=== PATIENT | male | born 1970 | race Two or more races ===

== ENCOUNTER 2022-04-19 17:56 | Emergency (ER) | payer OTHER ==
[2022-04-19 18:12] VITALS: TEMP 98.7; BMI 53.1
[2022-04-19 20:52] LABS: BASO % 0.7 % (0-2.0); EOS % 3.1 % (0-4.5); HEMATOCRIT 45.6 % (35.4-49); HEMOGLOBIN 15.8 GM/dL (11.7-16.9); MCHC 34.6 g/dl (32.0-35.9); MEAN CELL VOLUME 92.5 fl (80-96); MEAN PLT VOLUME 7.7 fl (7.5-11.1); MONO % 9.2 % (3.8-10.2); PLATELET COUNT 302 10^3/uL (134-434); RBC 4.93 M/mm3 (4.00-5.60); RDW 13.2 % (11.9-15.9); WHITE BLOOD COUNT 9.4 K/mm3 (4.0-10.0)
[2022-04-19 20:58] LABS: INR 1.08 (0.83-1.09); PROTHROMBIN TIME (PATIENT) 12.4 SEC (9.7-13.0)
[2022-04-19 21:01] LABS: ACTIVATED PTT 30.7 SECONDS (25.2-36.5)
[2022-04-19] MEDS ORDERED: LACTATED RINGERS SOLUTION 1000 ML INFUS.BAG IV ONE (21:02)
[2022-04-19 21:09] LABS: ALBUMIN 3.5 g/dl (3.4-5.0); BLOOD UREA NITROGEN 15.9 mg/dL (7-18); CALCIUM 8.8 mg/dL (8.5-10.1)
[2022-04-19 21:12] LABS: CREATININE 1.3 mg/dL (0.55-1.3)
[2022-04-19 21:14] LABS: BILIRUBIN,TOTAL 0.7 mg/dL (0.2-1); TOT PROT 7.5 g/dl (6.4-8.2)
[2022-04-19] MEDS ORDERED: diphenhydrAMINE HCL 25 MG CAPSULE (FP) PO ONE (22:13)
[2022-04-19] MEDS: diphenhydrAMINE HCL 25 MG CAPSULE (FP) PO ONE ×2 (22:16→22:30)
[2022-04-20 06:11] VITALS: BP 161/94; PULSE 68; RESP 20
== END 2022-04-20 06:11 | disposition short-term general hospital (02) ==
LOC: JER 17:56
DX: R42 Dizziness and giddiness (principal); R79.89 Other specified abnormal findings of blood chemistry
CPT/HCPCS: 0241U-QW; 36415; 71045-TC-FY; 80053; 83880; 84484; 85025; 85379; 85610; 85730; 93005; 93010; 99285-25